=== PATIENT | male | born 1985 | race Caucasian/White ===

== ENCOUNTER 2023-04-11 16:44 | Emergency (ER) | payer OTHER, SELFPAY ==
[2023-04-11 16:47] VITALS: BP 135/92
[2023-04-11 16:56] VITALS: BMI 25.8
[2023-04-11 16:58] LABS: Glucose - Point of Care 77 mg/dl (70-99)
[2023-04-11 17:09] LABS: % Basophils 0.4 % (0-2); % Eosinophils 0.2 % (0-6); % Immature Granulocytes 0.4 % (0-0.5); % Lymphocytes 10.2 % (20.5-51.1); % Neutrophils 84.8 % (42.2-75.2); Absolute Basophils 0.1 10^3/uL (0-0.2); Absolute Lymphocytes 1.2 10^3/uL (1.2-3.4); Absolute Monocytes 0.5 10^3/uL (0.1-0.6); Absolute Neutrophils 9.6 10^3/uL (1.4-6.5); Hematocrit 36.2 % (39.0-52.0); Hemoglobin 11.8 g/dL (13.0-18.0); Mean Corp Hgb Conc. 32.6 g/dL (33.0-37.0); Mean Corpuscular Hgb 24.7 pg (27.0-31.0); Mean Corpuscular Volume 75.9 fL (80.0-94.0); Mean Platelet Volume 9.2 fL (7.4-10.4); Nucleated Red Blood Cells % 0 % (-); Platelet Count 460 10^3/uL (130-400); Red Blood Cell Count 4.77 10^6/uL (4.70-6.10); Red Cell Dist. Width 16.3 % (11.5-14.5); White Blood Cell Count 11.3 10^3/uL (4.8-10.8)
[2023-04-11 17:22] LABS: ALT (SGPT) 22 U/L (0-50); AST (SGOT) 22 U/L (17-59); Albumin 4.4 g/dl (3.5-5.0); Alkaline Phosphatase 65 U/L (38-126); Blood Urea Nitrogen 20 mg/dl (9-20); Calcium 9.2 mg/dl (8.4-10.2); Carbon Dioxide 30 mmol/L (22-30); Chloride 101 mmol/L (98-107); Estimated Creatinine Clearance 120 ml/min; Glucose 59 mg/dl (70-99); Potassium 3.8 mmol/L (3.5-5.1); Sodium 136 mmol/L (135-145); Total Bilirubin 0.4 mg/dl (0.2-1.3); Total Protein 7.1 g/dl (6.3-8.2); eGFR > 60.00
--- NOTE | 2023-04-11 18:29 | ED.GENMED ---
History of Present Illness
General
Chief Complaint: Blood Sugar Problem
Source: patient
Exam Limitations: none
Time Seen by Provider: 04/11/23 16:59
Nursing documentation reviewed up to this point in time: agreed with
Travel History
Have you had any contact with someone who has COVID-19?: No
Do you have any symptoms of coronavirus? Fever > 100 degrees, chills, cough, shortness of breath, sore throat, loss of taste or smell, muscle aches, or headache?: No
History of Present Illness
History of Present Illness:
Patient with history of insulin-dependent diabetes, being treated with insulin pump, presents to ED secondary to seizure noted by officers, as he was being transported to present this afternoon. When paramedics arrived, patient was found to be
hypoglycemic and was given D50 with improved mental status. At the time of evaluation ED, patient is alert, awake, and oriented, without any complaints. Denies headache. Denies dizziness. Denies nausea. Denies recent illness. Patient has
turned off his insulin pump at this time. Unfortunately, patient states that he has had number of similar hypoglycemic events as well as seizure episode secondary to hypoglycemia. Denies recent change in medications or diet. Patient states that
he has been eating normally.
Review of Systems
Review of Systems
Allergies reviewed?: Yes
All Other Systems: ROS reviewed and negative except as documented in HPI and ROS
Constitutional: Reports no symptoms
EENT: Reports no symptoms
Respiratory: Reports no symptoms
Cardiac: Reports no symptoms
ABD/GI: Reports no symptoms
: Reports no symptoms
Musculoskeletal: Reports no symptoms
Skin: Reports other (contusion)
Neurological: Reports other (seizure)
Phy Exam
Physical Exam
Physical Exam:
Physical Exam
General: no apparent distress, not acutely ill. afebrile
Head: erythema with mild swelling noted over forehead. eomi
Neck: supple. no meningeal signs.
Heart: s1/s2 regular rate and rhythm, no murmur. equal radial pulses.
Lungs: no acute respiratory distress. clear bilaterally
Abdomen: normal bowel sounds. not tender.
Neuro: alert and oriented. no focal neurological deficits
Skin: no rash
Psychiatric: well kept. interactive and cooperative
Extremities: no edema. no calf tenderness.
Course
Orders/Labs/Results
Orders:
Orders
04/11/23 17:00
Complete Blood Count/With Diff Urgent
Comprehensive Metabolic Panel Urgent
04/11/23 18:30
CT Head W/o Iv Contrast Urgent
Comment:
Reason For Exam: trauma after seizure
04/11/23 21:18
Insulin Aspart [NOVOLOG vial] 6 units SC NOW STA
Abnormal Lab Results
04/11/23 04/11/23 04/11/23
17:00 18:31 19:18
WBC 11.3 H 10^3/uL
(4.8-10.8)
Hgb 11.8 L g/dL
(13.0-18.0)
Hct 36.2 L %
(39.0-52.0)
MCV 75.9 L fL
(80.0-94.0)
MCH 24.7 L pg
(27.0-31.0)
MCHC 32.6 L g/dL
(33.0-37.0)
RDW 16.3 H %
(11.5-14.5)
Plt Count 460 H 10^3/uL
(130-400)
Absolute Neuts (auto) 9.6 H 10^3/uL
(1.4-6.5)
Neutrophils % 84.8 H %
(42.2-75.2)
Lymphocytes % 10.2 L %
(20.5-51.1)
Glucose 59 L mg/dl
(70-99)
POC Glucose 49 L* mg/dl 153 H mg/dl
(70-99) (99)
04/11/23 04/11/23
20:22 21:14
WBC
Hgb
Hct
MCV
MCH
MCHC
RDW
Plt Count
Absolute Neuts (auto)
Neutrophils %
Lymphocytes %
Glucose
POC Glucose 282 H mg/dl 320 H mg/dl
(70-99) (99)
04/11/23 17:00
04/11/23 17:00
Vital Signs
Initial and Last Documented VS:
Initial Vital Signs
Temp Pulse Resp BP Pulse Ox
98.2 F 72 16 135/92 100
04/11/23 16:47 04/11/23 16:47 04/11/23 16:47 04/11/23 16:47 04/11/23 16:47
Last Documented Vital Signs
Temp Pulse Resp BP Pulse Ox
98.2 F 88 16 133/88 98
04/11/23 21:38 04/11/23 21:38 04/11/23 21:38 04/11/23 21:38 04/11/23 21:38
MDM/Problems Addressed
MDM/Problems Addressed:
Pt given sandwich and other meals in ED with stabilization of his blood sugar. In light of most recent BS > 300, will give 6 units of insulin SC and advise to restart his insulin pump. Instructions will be given upon discharge for [facility] to continue
to monitor his BS closely with accucheck. Pt is otherwise, afebrile and hemodynamically stable at time of discharge.
*Critical Care Note
Total Time (30-74mins, 75-104mins- exclusive of procedures): Not Applicable
ED Attending Note
-
Portions of this chart may have been created with voice recognition software.� Occasional wrong word or��sound alike� substitutions may have occurred due to the inherent limitations of voice recognition software.
Discharge Plan
Departure
Patient Disposition: Alf
Date of Disposition: 04/11/23
Time of Disposition: 21:21
Patient with high blood pressure during this ER visit?: Yes
Discharge Problem:
Hypoglycemia
Instructions: Low Blood Sugar, Adult (DC)
Prescriptions:
No Action
insulin aspart U-100 [Novolog U-100 Insulin aspart] 100 unit/mL Solution
0 sliding scale dose SC .VIA PUMP
insulin aspart U-100 [Novolog FlexPen U-100 Insulin] 100 unit/mL (3 mL) Insulin Pen
0 sliding scale dose SC MEALS
Activity Restrictions/Additional Instructions:
As discussed, please follow-up with your automobile sales consultant with any further concerns. Until then, recommend close monitoring of your blood sugar, especially tonight with Accu-Chek.
Interventions
Interventions:
*Risk Screen - Suicide Last Done: 04/11/23 18:30
*General Assessment Last Done: 04/11/23 18:30
*Neglect/Abuse Screening Last Done: 04/11/23 18:30
ED- Fall Risk Assessment Last Done: 04/11/23 17:36
*ED COVID-19 Vaccine History Last Done: 04/11/23 18:30
*Nursing Disposition Last Done: 04/11/23 21:38
ED- Neurological Assessment Last Done: 04/11/23 17:36
Discharge Date and Time
Discharge Date/Time: 04/11/23 21:52
[2023-04-11 18:32] LABS: Glucose - Point of Care 49 mg/dl (70-99)
[2023-04-11 19:19] LABS: Glucose - Point of Care 153 mg/dl (70-99)
[2023-04-11 19:32] VITALS: BP 134/79
[2023-04-11 20:00] VITALS: BP 128/72
[2023-04-11 20:23] LABS: Glucose - Point of Care 282 mg/dl (70-99)
[2023-04-11 21:00] VITALS: BP 127/80
[2023-04-11 21:15] LABS: Glucose - Point of Care 320 mg/dl (70-99)
[2023-04-11 21:19] VITALS: BP 133/88
[2023-04-11] MEDS: NOVOLOG vial 6 UNITS SC (21:31)
[2023-04-11 21:38] VITALS: BP 133/88
== END 2023-04-11 21:52 ==
LOC: EMR 16:44
PROVIDERS: Emergency Medicine; EMERGENCY PHYSICIAN Emergency Medicine
DX: E11.649 Type 2 diabetes mellitus with hypoglycemia without coma (principal); Z79.4 Long term (current) use of insulin
CPT/HCPCS: 99284; 96372; 70450; 80053; 82962; 85025

== ENCOUNTER 2023-11-27 16:22 | Emergency (ER) | payer OTHER, SELFPAY ==
[2023-11-27 16:25] VITALS: BP 116/88
[2023-11-27 16:30] VITALS: BP 116/88
[2023-11-27 16:31] LABS: Glucose - Point of Care 127 mg/dl (70-99)
[2023-11-27 16:36] VITALS: BMI 25.9
[2023-11-27 17:00] VITALS: BP 114/71
[2023-11-27 18:00] VITALS: BP 118/72
--- NOTE | 2023-11-27 18:28 | ED.GENMED ---
History of Present Illness
General
Chief Complaint: Blood Sugar Problem
Source: patient and other (credit administration officer)
Time Seen by Provider: 11/27/23 17:07
History of Present Illness
History of Present Illness:
38-year-old male from [facility] after he was found to be tremulous. They were able to give him glucagon. Shortly after that they did check his sugar and it was only 69. Patient states he deftly feel like this was a low blood sugar
event. He states that the [facility] gives him a higher sliding scale than he typically has as an outpatient. Patient states he was able to eat but got a higher dose that he should have probably before eating. He now feels much better. He does
complain of some left shoulder pain. [facility] guards states that they needed to hold him down so they could give him the glucagon because he was so tremulous. Patient states that just hurts when he abducts or externally rotates his left shoulder.
Otherwise no complaints. The patient states he is hoping to be out of [facility] soon and he can return to his normal care at home. He does also have an insulin pump with a basal rate. He gets bolus dosing prior to meals by staff
Past History
Past History
ED Past Medical History: IDDM and Other (PE/DVT)
Phy Exam
Physical Exam
Physical Exam:
CONSTITUTIONAL Vital signs reviewed, Patient alert and oriented to person, place and time. Well-appearing
HEAD atraumatic, normocephalic.
EYES eyelids normal to inspection, Extraocular muscles intact, Conjunctiva normal, Sclera normal.
NECK normal range of motion, Trachea midline, no jugular venous distention.
RESP no respiratory distress
BACK No obvious deformities
UPPER EXTREMITY Gross Range of motion normal, gross motor strength normal
LOWER EXTREMITY Gross range of motion normal, Gross motor strength normal. Mild discomfort with external rotation of the left shoulder both actively and passively. Otherwise normal range of motion in flexion/extension/internal rotation and
abduction
NEURO Speech normal, No focal motor deficits include, Donald coma scale 15, Memory normal, Cranial Nerves intact to screening exam.
SKIN Skin warm, dry, and normal in color.
PSYCHIATRIC Patient oriented to person place and time, Normal affect.
Course
Orders/Labs/Results
Orders:
Orders
11/27/23 17:41
Shoulder, Left, Trauma CR [CR Shoulder, Trauma - Left] Urgent
Comment:
Reason For Exam: shoulder pain after injury
Abnormal Lab Results
11/27/23
16:29
POC Glucose 127 H mg/dl
(70-99)
Vital Signs
Initial and Last Documented VS:
Initial Vital Signs
Temp Pulse Resp BP Pulse Ox
98.5 F 91 18 116/88 95
11/27/23 16:25 11/27/23 16:25 11/27/23 16:25 11/27/23 16:25 11/27/23 16:25
Last Documented Vital Signs
Temp Pulse Resp BP Pulse Ox
98.5 F 67 16 118/72 95
11/27/23 16:25 11/27/23 18:00 11/27/23 18:00 11/27/23 18:00 11/27/23 18:00
MDM/Problems Addressed
MDM/Problems Addressed:
Shoulder strain, hypoglycemia
*Pulse Oximetry
Patient hypoxic: no
*Critical Care Note
Total Time (30-74mins, 75-104mins- exclusive of procedures): Not Applicable
Data Reviewed
Source: patient and police
Further Testing Considered But Not Given:
Consider labs with patient symptoms are completely resolved
Patient Management
Escalation/DeEscalation of care consider admission/obs:
Tolerated a meal. He will watch his sugar closely. Suspect left shoulder strain. He will follow-up as an outpatient if symptoms persist
ED Attending Note
-
Portions of this chart may have been created with voice recognition software.� Occasional wrong word or��sound alike� substitutions may have occurred due to the inherent limitations of voice recognition software.
Discharge Plan
Departure
Patient Disposition: Home (Routine Discharge)
Date of Disposition: 11/27/23
Time of Disposition: 18:31
Patient with high blood pressure during this ER visit?: No
Discharge Problem:
Left shoulder strain, Hypoglycemia
Instructions: Low blood sugar in people with diabetes, Shoulder Sprain ED
Prescriptions:
No Action
insulin aspart U-100 [Novolog U-100 Insulin aspart] 100 unit/mL Solution
0 sliding scale dose SC .VIA PUMP
insulin aspart U-100 [Novolog FlexPen U-100 Insulin] 100 unit/mL (3 mL) Insulin Pen
0 sliding scale dose SC MEALS
Referrals:
[facility] [Family Provider] -
Activity Restrictions/Additional Instructions:
Please monitor your blood sugar often. Please be sure to consider slightly lower dosing prior to meals if your sugars are consistently low after meals. In addition, please rest your left shoulder. If discomfort persist, please see orthopedics
next 2 to 3 weeks for follow-up and reevaluation and further testing if warranted.
Interventions
Interventions:
*Risk Screen - Suicide Last Done: 11/27/23 16:36
*General Assessment Last Done: 11/27/23 16:36
*Neglect/Abuse Screening Last Done: 11/27/23 16:36
*ED COVID-19 Vaccine History Last Done: 11/27/23 16:36
ED- Neurological Assessment Last Done: 11/27/23 16:37
Discharge Date and Time
Print Language: [id number]
[2023-11-27 18:33] LABS: Glucose - Point of Care 242 mg/dl (70-99)
== END 2023-11-27 18:46 ==
LOC: EMR 16:22
PROVIDERS: EMERGENCY PHYSICIAN Emergency Medicine
DX: E11.649 Type 2 diabetes mellitus with hypoglycemia without coma (principal); Z79.4 Long term (current) use of insulin; Z96.41 Presence of insulin pump (external) (internal); S46.912A Strain of unspecified muscle, fascia and tendon at shoulder and upper arm level, left arm, initial encounter; X58.XXXA Exposure to other specified factors, initial encounter; Z86.718 Personal history of other venous thrombosis and embolism
CPT/HCPCS: 99283; 73030; 82962